=== PATIENT | female | born 1975 | race Caucasian/White ===

== ENCOUNTER 2017-09-08 14:01 | Observation (INO) ==
[~2017-09-08 14:01] MED LIST: *HR* HYDROcodone/Acet 5/325 mg TABLET PO PRN; Acetaminophen 325 MG TABLET PO PRN
[2017-09-08 17:24] LABS: Bilirubin,Urine Negative (Negative); Blood,Urine Negative (Negative); Clarity,Urine Clear (Clear); Color,Urine Yellow (Yellow); Glucose,Urine (UA) Normal (Normal); Ketones,Urine Negative (Negative); Leukocyte Esterase,Urine Negative (Negative); Nitrite,Urine Negative (Negative); Protein,Urine Trace mg/dL (Neg-Trace); Specific Gravity,Urine 1.027 (1.010-1.025); Urobilinogen,Urine Normal (Normal)
[2017-09-08 17:28] LABS: Bacteria,Urine Few per hpf (None-Few); Hyaline Casts,Urine None Seen per lpf (None-Few); RBC,Urine 0-3 per hpf (0-3); Squamous Epithelial Cell,Urine Many per lpf (None-Few)
--- NOTE | 2017-09-08 17:52 | Emergency Department Note ---
Disposition Clinical Impression: Viral meningitis Disposition: Admitted As Inpatient Condition: Fair Referrals: Richy Peterson MD [Primary Care Provider] - Forms: ED Satisfaction Letter Time of Disposition: 22:53 General Adult HPI - General Chief complaint: ED Weakness Stated complaint: weakness, body aches, fever Time Seen by Provider: 09/08/17 16:58 Source: patient Limitations: no limitations Nursing Notes Reviewed: Yes Vital Signs Reviewed: Yes - History of Present Illness HPI Narrative: 42-year-old female presents from home for evaluation of headache and fever. This began 3 days ago he reaches measured her temperature at home to be 101.8 by mouth with associated sweats and chills. She describes her headache as bitemporal with photophobia, phonophobia, and increased sensitivity to smell. She does have a history of migraine however, this is different in that her symptoms are associated with generalized myalgia and weakness which is atypical for her normal migraines. ROS: Positive: As above Negative: Confusion, changes in vision, chest pain, palpitations, change in her chronic asthmatic cough, abdominal pain, focal numbness or weakness. Pain Scale: 10 - Related Data Home Medications Medication Instructions Recorded Confirmed Albuterol Neb [Proventil Neb] 2.5 mg IH TID PRN 08/05/16 09/08/17 Albuterol Sulfate [Ventolin Hfa] 2 puff IH BID PRN 08/05/16 09/08/17 Citalopram Hydrobromide 10 mg PO DAILY 08/05/16 09/08/17 [Citalopram HBr] LORazepam [Ativan] 0.5 mg PO BID 08/05/16 09/08/17 Montelukast [Singulair] 10 mg PO DAILY 08/05/16 09/08/17 SUMAtriptan succinate [Imitrex] 50 mg PO Q2H PRN 08/05/16 09/08/17 raNITIdine HCl [Ranitidine HCl] 150 mg PO BID 08/05/16 09/08/17 Flunisolide [Aerospan] 2 puff IH BID PRN 09/05/16 09/08/17 Dicyclomine [Bentyl] 20 mg PO QID 09/08/17 09/08/17 Doxepin HCl 150 mg PO DAILY 09/08/17 09/08/17 Lansoprazole [Prevacid] 30 mg PO DAILY 09/08/17 09/08/17 Lidocaine Patch [Lidoderm 5% patch] 1 patch TP DAILY 09/08/17 09/08/17 Mometasone Furoate [Asmanex Hfa] 2 puff IH TID 09/08/17 09/08/17 Previous Rx's Medication Instructions Recorded Docusate Sodium [Dok] 100 mg PO DAILY PRN #0 09/15/16 Fluticasone Propionate [Flonase 15.8 ml NS DAILY #1 spray.susp 07/06/17 Allergy Relief] Loratadine/Pseudophed (12 HR) 1 each PO BID #14 tab.er.12h 07/06/17 [Claritin D (12HR)] Allergies Allergy/AdvReac Type Severity Reaction Status Date / Time Amoxicillin [From Amoxil] Allergy Hives Verified 09/08/17 20:43 dextromethorphan Allergy Palpitation Verified 09/08/17 20:43 [From Capmist DM] s guaifenesin [From Capmist DM] Allergy Palpitation Verified 09/08/17 20:43 s pseudoephedrine Allergy Palpitation Verified 09/08/17 20:43 [From Capmist DM] s All systems ED: reviewed and negative except as stated. Review of Systems: As Per HPI Past Medical History - Past Medical History Medical history: Reports: arthritis, asthma, diabetes, GERD, migraine Surgical history: Reports: cholecystectomy, hysterectomy Psychiatric history: Reports: bipolar - Social History Smoking Status: Never smoker Smokeless Tobacco Status: No Alcohol use: Reports: none Drug use: Reports: none Physical Exam Vital Signs Reviewed General: Patient is alert, oriented, and in no acute distress. She is laying comfortably in a darkened room. Head: atraumatic, normocephalic Eye: normal appearance, PERRL, EOMI, no scleral icterus, no conjunctival injection ENT: mucous membranes moist, normal external ear exam Neck: normal inspection, trachea midline, full ROM Chest: normal inspection, symmetric chest rise Respiratory: Good respiratory effort. Bilateral breath sounds are clear without wheezing, crackles, or rhonchi. Cardiovascular: Regular rate and rhythm. No clicks, rubs, gallops, or murmors. Normal heart sounds. Abdomen: Bowel sounds present normoactive x-4 quadrants. Abdomen is soft, nondistended, and nontender. No guarding or rebound. No organomegaly noted. Musculoskeletal: Spontaneously moving all extremities. Skin: warm, dry, intact. Neuro: Alert and oriented x4. Sensation light touch intact. Positive Kernig, positive Brudzinski. Psych: Patient's affect is appropriate for situation. - General Limitations: no limitations General appearance: alert, in no apparent distress Course Course Narrative: Clinical concern is for meningitis. Will perform ocular ultrasound to measure optic nerve diameter to assess for papilledema. If absent, will lumbar puncture. No papilledema on US bedside in bilateral eyes. Images saved to PACS. LP performed. CSF cell count shows 236 count nuetrophils with low RBC count. Diff pending. Began IVF and analgesia. 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 He recommends admission to hospitalist. No need for antiviral as patient does not have altered mentation. I discussed the above with the patient. She is agreeable to admission for continued evaluation and management. I discussed the above with the admitting hospitalist who agrees to accept the patient for continued evaluation and management. Vital Signs Temperature 98.5 F 09/08/17 14:05 Pulse Rate 110 09/08/17 14:05 Respiratory Rate 20 09/08/17 14:05 Blood Pressure 123/82 09/08/17 14:05 O2 Sat by Pulse Oximetry 96 09/08/17 14:05 Temperature 98.5 F 09/08/17 17:04 Pulse Rate 78 09/08/17 21:30 Respiratory Rate 13 09/08/17 21:30 Blood Pressure 103/81 09/08/17 21:30 O2 Sat by Pulse Oximetry 96 09/08/17 21:30 Oxygen Delivery Oxygen Delivery Room Air Medical Decision Making - Lab Data Result diagrams: 09/08/17 17:34 Lab Results 09/08/17 09/08/17 09/08/17 Range/Units 17:14 17:14 17:34 ESR (0-15) mm/hr Sodium 138 (136-145) mEq/L Potassium 4.1 (3.5-5.1) mEq/L Chloride 101 (98-107) mEq/L Carbon Dioxide 29 (23-29) mEq/L BUN 20 (6-20) mg/dL Creatinine 1.39 H (0.60-1.20) mg/dL Est GFR ( Amer) 50 L (> 60) Est GFR (Non-Af Amer) 41 L (> 60) BUN/Creatinine Ratio 14 (6-26) Glucose 104 (70-105) mg/dL Calculated Osmolality 289 (280-300) Calcium 9.6 (8.6-10.3) mg/dL C-Reactive Protein < 5 (Less than 10) mg/L Urine Color Yellow (Yellow) Urine Clarity Clear (Clear) Urine pH 6.0 (5.0-8.0) pH Units Ur Specific [place] 1.027 H (1.010-1.025) Urine Protein Trace (Neg-Trace) mg/dL Urine Glucose (UA) Normal (Normal) mg/dL Urine Ketones Negative (Negative) mg/dL Urine Blood Negative (Negative) Urine Nitrite Negative (Negative) Urine Bilirubin Negative (Negative) Urine Urobilinogen Normal (Normal) mg/dL Ur Leukocyte Esterase Negative (Negative) Urine Microscopic RBC 0-3 (0-3) per hpf Ur Squamous Epith Cells Many H (None-Few) per lpf Urine Bacteria Few (None-Few) per hpf Hyaline Casts None Seen (None-Few) per lpf Urine Test Negative (Negative) CSF Volume mL CSF Appearance (Clear) CSF Color (Colorless) CSF RBC (0.000 - 0.002) M/mcL CSF Tot Nucleated Cells (0-5) TNC/mcL CSF Seg Neutrophils CSF Band Neutrophils % CSF Lymphocytes % % CSF Monocytes % CSF Eosinophils % CSF Basophils % CSF Other Cells % CSF Xanth Comm (Not Observe) 18 09/08/17 Range/Units 17:44 19:00 ESR 40 H (0-15) mm/hr Sodium (136-145) mEq/L Potassium (3.5-5.1) mEq/L Chloride (98-107) mEq/L Carbon Dioxide (23-29) mEq/L BUN (6-20) mg/dL Creatinine (0.60-1.20) mg/dL Est GFR ( Amer) (> 60) Est GFR (Non-Af Amer) (> 60) BUN/Creatinine Ratio (6-26) Glucose (70-105) mg/dL Calculated Osmolality (280-300) Calcium (8.6-10.3) mg/dL C-Reactive Protein (Less than 10) mg/L Urine Color (Yellow) Urine Clarity (Clear) Urine pH (5.0-8.0) pH Units Ur Specific [place] (1.010-1.025) Urine Protein (Neg-Trace) mg/dL Urine Glucose (UA) (Normal) mg/dL Urine Ketones (Negative) mg/dL Urine Blood (Negative) Urine Nitrite (Negative) Urine Bilirubin (Negative) Urine Urobilinogen (Normal) mg/dL Ur Leukocyte Esterase (Negative) Urine Microscopic RBC (0-3) per hpf Ur Squamous Epith Cells (None-Few) per lpf Urine Bacteria (None-Few) per hpf Hyaline Casts (None-Few) per lpf Urine Test (Negative) CSF Volume 2.5 mL CSF Appearance Clear (Clear) CSF Color Colorless (Colorless) CSF RBC < 0.002 (0.000 - 0.002) M/mcL CSF Tot Nucleated Cells 236 H* (0-5) TNC/mcL CSF Seg Neutrophils Test Not Performed CSF Band Neutrophils % Test Not Performed CSF Lymphocytes % 100 % CSF Monocytes % Test Not Performed CSF Eosinophils % Test Not Performed CSF Basophils % Test Not Performed CSF Other Cells % Test Not Performed CSF Xanth Comm Not Observed (Not Observe)
[2017-09-08 18:35] LABS: BUN/Creatinine Ratio 14 (6-26); Blood Urea Nitrogen 20 mg/dL (6-20); Calcium 9.6 mg/dL (8.6-10.3); Carbon Dioxide 29 mEq/L (23-29); Chloride 101 mEq/L (98-107); Glucose 104 mg/dL (70-105); Osmolality,Calculated 289 (280-300); Potassium 4.1 mEq/L (3.5-5.1); Sodium 138 mEq/L (136-145); eGFR For African Americans 50 (> 60); eGFR For Non-African Americans 41 (> 60)
[2017-09-08] MEDS ORDERED: Lidocaine -MPF 1% 2 ML VIAL INFILT STA (19:02)
[2017-09-08 19:08] LABS: C-Reactive Protein < 5 mg/L (Less than 10)
--- NOTE | 2017-09-08 20:01 | Emergency Department Note ---
Disposition Clinical Impression: Viral meningitis Disposition: Admitted As Inpatient Condition: Fair General Adult HPI - General Chief complaint: ED Weakness Stated complaint: weakness, body aches, fever Time Seen by Provider: 09/08/17 16:58 Source: patient Limitations: no limitations - History of Present Illness Pain Scale: 10 - Related Data Home Medications Medication Instructions Recorded Confirmed Albuterol Neb [Proventil Neb] 2.5 mg IH TID PRN 08/05/16 09/08/17 Albuterol Sulfate [Ventolin Hfa] 2 puff IH BID PRN 08/05/16 09/08/17 Citalopram Hydrobromide 10 mg PO DAILY 08/05/16 09/08/17 [Citalopram HBr] LORazepam [Ativan] 0.5 mg PO BID 08/05/16 09/08/17 Montelukast [Singulair] 10 mg PO DAILY 08/05/16 09/08/17 SUMAtriptan succinate [Imitrex] 50 mg PO Q2H PRN 08/05/16 09/08/17 raNITIdine HCl [Ranitidine HCl] 150 mg PO BID 08/05/16 09/08/17 Flunisolide [Aerospan] 2 puff IH BID PRN 09/05/16 09/08/17 Dicyclomine [Bentyl] 20 mg PO QID 09/08/17 09/08/17 Doxepin HCl 150 mg PO DAILY 09/08/17 09/08/17 Lansoprazole [Prevacid] 30 mg PO DAILY 09/08/17 09/08/17 Lidocaine Patch [Lidoderm 5% patch] 1 patch TP DAILY 09/08/17 09/08/17 Mometasone Furoate [Asmanex Hfa] 2 puff IH TID 09/08/17 09/08/17 Previous Rx's Medication Instructions Recorded Docusate Sodium [Dok] 100 mg PO DAILY PRN #0 09/15/16 Fluticasone Propionate [Flonase 15.8 ml NS DAILY #1 spray.susp 07/06/17 Allergy Relief] Loratadine/Pseudophed (12 HR) 1 each PO BID #14 tab.er.12h 07/06/17 [Claritin D (12HR)] Allergies Allergy/AdvReac Type Severity Reaction Status Date / Time Amoxicillin [From Amoxil] Allergy Hives Verified 09/08/17 20:43 dextromethorphan Allergy Palpitation Verified 09/08/17 20:43 [From Capmist DM] s guaifenesin [From Capmist DM] Allergy Palpitation Verified 09/08/17 20:43 s pseudoephedrine Allergy Palpitation Verified 09/08/17 20:43 [From Capmist DM] s Past Medical History - Past Medical History Medical history: Reports: arthritis, asthma, diabetes, GERD, migraine Surgical history: Reports: cholecystectomy, hysterectomy Psychiatric history: Reports: bipolar - Social History Smoking Status: Never smoker Smokeless Tobacco Status: No Alcohol use: Reports: none Drug use: Reports: none Physical Exam - General Limitations: no limitations General appearance: alert, in no apparent distress Course Vital Signs Temperature 98.5 F 09/08/17 14:05 Pulse Rate 110 09/08/17 14:05 Respiratory Rate 20 09/08/17 14:05 Blood Pressure 123/82 09/08/17 14:05 O2 Sat by Pulse Oximetry 96 09/08/17 14:05 Temperature 98.5 F 09/08/17 17:04 Pulse Rate 78 09/08/17 21:30 Respiratory Rate 16 09/08/17 23:18 Blood Pressure 128/80 09/08/17 23:18 O2 Sat by Pulse Oximetry 96 09/08/17 21:30 Oxygen Delivery Oxygen Delivery Room Air Medical Decision Making - Lab Data Result diagrams: 09/08/17 17:34 Lab Results 09/08/17 09/08/17 09/08/17 Range/Units 17:14 17:14 17:34 ESR (0-15) mm/hr Sodium 138 (136-145) mEq/L Potassium 4.1 (3.5-5.1) mEq/L Chloride 101 (98-107) mEq/L Carbon Dioxide 29 (23-29) mEq/L BUN 20 (6-20) mg/dL Creatinine 1.39 H (0.60-1.20) mg/dL Est GFR ( Amer) 50 L (> 60) Est GFR (Non-Af Amer) 41 L (> 60) BUN/Creatinine Ratio 14 (6-26) Glucose 104 (70-105) mg/dL Calculated Osmolality 289 (280-300) Calcium 9.6 (8.6-10.3) mg/dL C-Reactive Protein < 5 (Less than 10) mg/L Urine Color Yellow (Yellow) Urine Clarity Clear (Clear) Urine pH 6.0 (5.0-8.0) pH Units Ur Specific [place] 1.027 H (1.010-1.025) Urine Protein Trace (Neg-Trace) mg/dL Urine Glucose (UA) Normal (Normal) mg/dL Urine Ketones Negative (Negative) mg/dL Urine Blood Negative (Negative) Urine Nitrite Negative (Negative) Urine Bilirubin Negative (Negative) Urine Urobilinogen Normal (Normal) mg/dL Ur Leukocyte Esterase Negative (Negative) Urine Microscopic RBC 0-3 (0-3) per hpf Ur Squamous Epith Cells Many H (None-Few) per lpf Urine Bacteria Few (None-Few) per hpf Hyaline Casts None Seen (None-Few) per lpf Urine Test Negative (Negative) CSF Volume mL CSF Appearance (Clear) CSF Color (Colorless) CSF RBC (0.000 - 0.002) M/mcL CSF Tot Nucleated Cells (0-5) TNC/mcL CSF Seg Neutrophils CSF Band Neutrophils % CSF Lymphocytes % % CSF Monocytes % CSF Eosinophils % CSF Basophils % CSF Other Cells % CSF Xanth Comm (Not Observe) 09/08/17 09/08/17 Range/Units 17:44 19:00 ESR 40 H (0-15) mm/hr Sodium (136-145) mEq/L Potassium (3.5-5.1) mEq/L Chloride (98-107) mEq/L Carbon Dioxide (23-29) mEq/L BUN (6-20) mg/dL Creatinine (0.60-1.20) mg/dL Est GFR ( Amer) (> 60) Est GFR (Non-Af Amer) (> 60) BUN/Creatinine Ratio (6-26) Glucose (70-105) mg/dL Calculated Osmolality (280-300) Calcium (8.6-10.3) mg/dL C-Reactive Protein (Less than 10) mg/L Urine Color (Yellow) Urine Clarity (Clear) Urine pH (5.0-8.0) pH Units Ur Specific [place] (1.010-1.025) Urine Protein (Neg-Trace) mg/dL Urine Glucose (UA) (Normal) mg/dL Urine Ketones (Negative) mg/dL Urine Blood (Negative) Urine Nitrite (Negative) Urine Bilirubin (Negative) Urine Urobilinogen (Normal) mg/dL Ur Leukocyte Esterase (Negative) Urine Microscopic RBC (0-3) per hpf Ur Squamous Epith Cells (None-Few) per lpf Urine Bacteria (None-Few) per hpf Hyaline Casts (None-Few) per lpf Urine Test (Negative) CSF Volume 2.5 mL CSF Appearance Clear (Clear) CSF Color Colorless (Colorless) CSF RBC < 0.002 (0.000 - 0.002) M/mcL CSF Tot Nucleated Cells 236 H* (0-5) TNC/mcL CSF Seg Neutrophils Test Not Performed CSF Band Neutrophils % Test Not Performed CSF Lymphocytes % 100 % CSF Monocytes % Test Not Performed CSF Eosinophils % Test Not Performed CSF Basophils % Test Not Performed CSF Other Cells % Test Not Performed CSF Xanth Comm Not Observed (Not Observe) Attestation Statement - Attestation Attestation: I examined this patient and my medical decision-making was reviewed with the Resident Physician. I agree with the documented findings, disposition and treatment plan as described except to the extent set forth below. Agree with Dr. Olivera's assessment that this patient requires rule out of meningitis. I was present and available for the ocular ultrasound which showed normal optic nerve sheath diameter, effectively ruling out increased ICP. I was present and assisting for the LP, and was able to obtain initially bloody spinal fluid that cleared as we collected fluid for all 4 tubes, after [address] Olivera, using a 22 ga 7" spinal needle. Please see his procedure notes for full details of these procedures. She also had some temporal tenderness that concerned Dr. Olivera for the possibility of temporal arteritis. ESR 40, elevated but not to the extent that is typical with TA. Will consult with ophthalmology.
[2017-09-08 20:11] LABS: Red Blood Cell,CSF < 0.002 M/mcL
[2017-09-08] MEDS ORDERED: *HR* FentaNYL (PF) 100 MCG/2 ML VIAL IVP ONE (20:12)
[2017-09-08 20:20] LABS: Appearance,CSF Clear (Clear)
[2017-09-08] MEDS ORDERED: 0.9 % Sodium Chloride 1,000 ML IVC ONE (20:27)
[2017-09-08] MEDS ORDERED: Ketorolac 15 MG/ML VIAL IVP ONE (20:32)
[2017-09-08 20:53] LABS: Lymphocytes,CSF 100 %
[2017-09-08] MEDS ORDERED: Naloxone 0.4 MG/ML INJ IVP PRN (21:49)
[2017-09-08] MEDS ORDERED: Albuterol 2.5 MG/3 ML NEBULIZER IH PRN (21:57)
[2017-09-08] MEDS ORDERED: FLUNISOLIDE IH PRN (21:57)
[2017-09-08] MEDS ORDERED: 0.9 % Sodium Chloride 1,000 ML IVC SCH (22:00)
--- NOTE | 2017-09-08 22:08 | Internal Med History&Physical ---
Date of Encounter: 09/08/17 Time of Encounter: 21:59 Internal Medicine - H&P: HPI Chief complaint: headache, neck pain, fever Admitted From: Emergency Dept Plans for Post Hospital Care: Home History of present illness: Ms. Guillory is a 42 year old female who presents with a three-day history of headache, neck pain, fever, chills, and body aches. She has a history of migraine headaches and felt initially that her symptoms were due to migraine headache. However, after she failed her routine migraine medications including Imitrex, she came to the ER for evaluation. She tried going to her PCP today, but she was advised to come to the ER due to her symptoms. In the ER, there was clinical suspicion of meningitis. She therefore underwent lumbar puncture, which revealed meningitis based upon CSF studies -- most likely a viral process. ER staff contacted Dr. Llanos from neurology who agreed this was likely viral meningitis. She was subsequently admitted to hospitalist service. Upon my assessment patient in the ER, patient confirmed above history. She denies any recent tick bites, bug bites, or any frequent mosquito bites. She has had no known ill contacts. She denies any foreign travel recently. 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 Last breakout was several years ago. I reviewed her CSF studies, and I agree this is most likely viral process. However, until we have a confirmatory negative culture, I'm inclined to start antibiotics. Additionally, I will add acyclovir given her history of oral herpes. Past Med Surg Social Fam HX - Past Medical History Attestation: Yes The following information was validated with the patient. Source: patient, old records reviewed Medical history: arthritis, asthma, diabetes, GERD, migraine Additional medical history: pancreatitis Psychiatric history: bipolar - Past Surgical History Surgical History: cholecystectomy, hysterectomy Additional surgical history: nasal sx. ERCP - Social History Smoking Status: Never smoker Smokeless Tobacco Status: No Alcohol use: none Drug use: none Current living situation: Home, With Family Activity Level: Independent ambulation Recent Out of Country Travel Within the Last 8 Weeks: No - Family History Mother Hx Family Neurologic Disorders: No Father Hx Family Neurologic Disorders: No Internal Medicine - H&P: Meds Albuterol Neb [Proventil Neb] 2.5 mg IH TID PRN 08/05/16 [History] Albuterol Sulfate [Ventolin Hfa] 2 puff IH BID PRN 08/05/16 [History] Citalopram Hydrobromide [Citalopram HBr] 10 mg PO DAILY 08/05/16 [History] LORazepam [Ativan] 0.5 mg PO BID 08/05/16 [History] Montelukast [Singulair] 10 mg PO DAILY 08/05/16 [History] SUMAtriptan succinate [Imitrex] 50 mg PO Q2H PRN 08/05/16 [History] raNITIdine HCl [Ranitidine HCl] 150 mg PO BID 08/05/16 [History] Flunisolide [Aerospan] 2 puff IH BID PRN 09/05/16 [History] Docusate Sodium [Dok] 100 mg PO DAILY PRN #0 09/15/16 [Rx] Fluticasone Propionate [Flonase Allergy Relief] 15.8 ml NS DAILY #1 spray.susp 07/06/17 [Rx] Loratadine/Pseudophed (12 HR) [Claritin D (12HR)] 1 each PO BID #14 tab.er.12h 07/06/17 [Rx] Dicyclomine [Bentyl] 20 mg PO QID 09/08/17 [History] Doxepin HCl 150 mg PO DAILY 09/08/17 [History] Lansoprazole [Prevacid] 30 mg PO DAILY 09/08/17 [History] Lidocaine Patch [Lidoderm 5% patch] 1 patch TP DAILY 09/08/17 [History] Mometasone Furoate [Asmanex Hfa] 2 puff IH TID 09/08/17 [History] 3 Allergy/AdvReac Type Severity Reaction Status Date / Time Amoxicillin [From Amoxil] Allergy Hives Verified 09/08/17 20:43 dextromethorphan Allergy Palpitation Verified 09/08/17 20:43 [From Capmist DM] s guaifenesin [From Capmist DM] Allergy Palpitation Verified 09/08/17 20:43 s pseudoephedrine Allergy Palpitation Verified 09/08/17 20:43 [From Capmist DM] s - Constitutional Constitutional: chills, fever(s), no night sweats - EENT Eyes: no blurry vision, no change in vision Ears: no ear pain, no tinnitus Nose, mouth and throat: nasal congestion, sinus pressure, no sore throat - Cardiovascular Cardiovascular ROS IM: no chest pain, no dyspnea, no dyspnea on exertion - Respiratory Respiratory: no cough, no dyspnea, no hemoptysis, no chest congestion, no excessive phlegm production, no change in phlegm color - Gastrointestinal Gastrointestinal: no abdominal pain, no diarrhea, no hematemesis, no hematochezia, no melena, no nausea, no vomiting - Genitourinary Genitourinary: no dysuria, no flank pain, no hematuria - Musculoskeletal Musculoskeletal ROS IM: myalgias, neck pain, no back pain - Integumentary Integumentary IM: no rash, no jaundice - Neurological Neurological ROS: headache(s), no dizziness, no focal weakness, no frequent falls - Psychiatric Psychiatric: no anxiety, no depression - Endocrine Endocrine IM: no polydipsia, no polyuria - Allergic/Immunologic Allergic/Immunologic: no GI upset with certain foods - Constitutional Vitals: Temp Pulse Resp BP Pulse Ox 98.5 F 78 13 103/81 96 09/08/17 17:04 09/08/17 21:30 09/08/17 21:30 09/08/17 21:30 09/08/17 21:30 General appearance: Present: cooperative, A&O X 3, pleasant, no acute distress, answers questions appropriately - Head Head exam: Present: normal inspection - Eye Eye exam: Present: EOMI, normal appearance, PERRL. Absent: scleral icterus Pupils: Present: normal accommodation - ENT ENT exam: Present: mucous membranes moist, normal exam, normal oropharynx Additional comments: no oral, lip or mucosal ulcers - Neck Neck exam general surgery: Present: full ROM, tenderness (posterior neck/ cervical spine), nuchal rigidity (mild), trachea midline. Absent: thyromegaly - Respiratory Respiratory exam: Present: CTAB. Absent: chest wall tenderness, rales, rhonchi , wheezes - Cardiovascular Cardiovascular exam: Present: RRR, +S1, +S2. Absent: diastolic murmur, systolic murmur - GI/Abdominal GI/Abdominal exam: Present: normal bowel sounds, soft. Absent: hepatomegaly, mass, splenomegaly, tenderness - Extremities Exam Extremities exam: Present: normal capillary refill, warm, radial pulses palpable and symmetrical. Absent: calf tenderness, joint swelling, pedal edema , tenderness - Back Exam Back exam: Present: normal inspection. Absent: CVA tenderness (L), CVA tenderness (R) - Neurological Exam Neurological exam: Present: alert, CN II-XII intact, oriented X3, no focal deficits - Psychiatric Psychiatric exam: Present: normal affect, normal mood - Skin Skin exam: Present: dry, warm. Absent: rash Internal Med - H&P Results - Labs CBC & Chem 7: 09/08/17 17:34 Labs: BMP 09/08/17 17:34 Sodium 138 Potassium 4.1 Chloride 101 Carbon Dioxide 29 BUN 20 Creatinine 1.39 H Glucose 104 Calcium 9.6 Urine 09/08/17 Range/Units 17:14 Urine Color Yellow (Yellow) Urine Clarity Clear (Clear) Urine pH 6.0 (5.0-8.0) pH Units Ur Specific [place] 1.027 H (1.010-1.025) Urine Protein Trace (Neg-Trace) mg/dL Urine Glucose (UA) Normal (Normal) mg/dL - Assessment and plan (1) Meningitis Current Visit: Yes Status: Acute Assessment and plan: 1. I suspect this is viral process. 2. Until CSF cultures are confirmed negative for bacterial pathogens, will place patient on Vancomycin and Rocpehin IV. Stop/de-escalate antibiotics once CSF cultures resulted and confirmed negative. 3. Patient has history of oral cold sores/herpes. As such, will start Acyclovir IV per pharmacy dosing -- discussed dosing with pharmacy. 4. CSF collected and sent for HSV PCR. 5. Neurology already consulted through ER. (2) Asthma Current Visit: Yes Status: Chronic Assessment and plan: 1. Continue home meds as appropriate. 2. No need for systemic steroids at this time. 3. No acute flare presently. Qualifiers: Asthma severity: moderate Asthma persistence: persistent Asthma complication type: uncomplicated Qualified Code(s): J45.40 - Moderate persistent asthma, uncomplicated (3) DVT prophylaxis Current Visit: Yes Status: Acute Assessment and plan: 1. Heparin SQ.
[2017-09-08] MEDS: cefTRIAXone 2,000 MG in Water for inj. (sterile) 20 ML 20 ML IVPB SCH (23:07)
[2017-09-08] MEDS: Acyclovir 500 MG in D5% in Water 100 ML IVPB SCH (23:29)
[2017-09-09 01:07] LABS: Glucose,CSF 54 mg/dL (40-70); Total Protein,CSF 99 mg/dL (15-45)
[2017-09-09] MEDS: *HR* Heparin 5,000 UNIT/ML VIAL SQ SCH ×3 (02:35→21:45)
[2017-09-09] MEDS: SUMAtriptan succinate 50 MG TABLET PO PRN ×4 (02:35→20:01)
[2017-09-09] MEDS: cefTRIAXone 2,000 MG in Water for inj. (sterile) 20 ML 20 ML IVPB SCH ×2 (04:50→17:56)
[2017-09-09 06:02] LABS: Basophils % 0.5 %; Eosinophils # 0.2 K/mcL (0.0-0.6); Eosinophils % 1.9 %; Hematocrit 35.1 % (35.3-44.9); Hemoglobin 11.6 g/dL (11.5-15.4); Immature Granulocytes % 0.9 % (0-4); Lymphocytes # 2.1 K/mcL (0.6-4.6); Lymphocytes % 24.2 %; Mean Corpuscular Hemoglobin 28.9 pg (28.0-33.3); Mean Corpuscular Volume 87.5 fL (83.0-100.0); Mean Platelet Volume 9.1 fL (9.4-12.4); Monocytes # 0.7 K/mcL (0.0-1.3); Monocytes % 8.4 %; Neutrophils # 5.5 K/mcL (1.6-8.9); Platelet Count 221 K/mcL (140-400); Red Blood Count 4.01 M/mcL (3.82-4.97); Red Cell Distribution Width 13.4 % (11.5-14.5); Segmented Neutrophils % 64.1 %
[2017-09-09 06:19] LABS: Albumin 3.6 g/dL (3.5-5.7); Albumin/Globulin Ratio 1.3 (1.1-2.2); Bilirubin,Total 0.4 mg/dL (0.3-1.0); Calcium 8.5 mg/dL (8.6-10.3); Globulin 2.8 g/dL (2.4-3.5); Potassium 3.9 mEq/L (3.5-5.1); Total Protein 6.4 g/dL (6.4-8.9)
[2017-09-09] MEDS: Famotidine 20 MG TABLET PO SCH ×2 (08:08→20:01)
[2017-09-09] MEDS: *HR* LORazepam 0.5 MG TABLET PO SCH ×2 (08:08→20:01)
[2017-09-09] MEDS: Loratadine/Pseudophed (12 HR) 1 EACH TABLET PO SCH ×2 (08:08→20:02)
[2017-09-09] MEDS: Fluticasone Propionate Nasal 50 MCG/SPRAY BOTTLE NS SCH (08:11)
--- NOTE | 2017-09-09 08:22 | Neurology - Consult Note ---
Date of Encounter: 09/09/17 Time of Encounter: 08:18 Assessment and Plan (1) Viral meningitis Current Visit: Yes Status: Acute At this juncture I agree with the diagnosis of viral meningitis. She shows no evidence of encephalitis. Current workup is in progress. Cultures are yet pending as are PCR tests. Given her history of oral herpes I would recommend simply maintaining her on oral acyclovir for 10 day course of treatment. Also recommend hydration and pain management as necessary. Otherwise I see no other factors that I would consider complicating regarding this case. I would recommend keeping her in hospital pending final cultures. History of Present Illness HPI: The chart was reviewed, the patient was seen and examined. Ms. Guillory is a 42 year old female who is admitted secondary to what appears to be a viral meningitis. She reports a history of progressively worsening headache which began about 3 days or so ago. Request to include intense neck pain as well as back pain. Date that she did try [id number] remedies at home to try to help with the headaches to no avail. Ultimately she came to the ED where there was a clinical suspicion for meningitis. Lumbar puncture performed in the ED. WBCs were elevated at 236, 100% worse lymphocytes. Protein was elevated at 99. Glucose was normal at 54. Gram stain was negative for organisms. CSF culture is pending. At the time of admission she states that her headache was 10 on a scale of 10. Currently she rates it at about a 7. She has no confusion associated with this. She does feel some improvement compared to yesterday. Apparently she does have a history of oral herpes. Since admission she has been started on vancomycin, was also given ceftriaxone and is on acyclovir. Her appearance is nontoxic. She is not in any acute distress. Past Med Surg Social Fam HX - Past Medical History Medical history: arthritis, asthma, diabetes, GERD, migraine Additional medical history: pancreatitis Psychiatric history: bipolar - Past Surgical History Surgical History: cholecystectomy, hysterectomy Additional surgical history: nasal sx. ERCP - Social History Smoking Status: Never smoker Smokeless Tobacco Status: No Alcohol use: none Drug use: none - Family History Mother Hx Family Neurologic Disorders: No Father History Unknown: Yes Hx Family Neurologic Disorders: No Medications and Allergies Albuterol Neb [Proventil Neb] 2.5 mg IH TID PRN 08/05/16 [History] Albuterol Sulfate [Ventolin Hfa] 2 puff IH BID PRN 08/05/16 [History] Citalopram Hydrobromide [Citalopram HBr] 10 mg PO DAILY 08/05/16 [History] LORazepam [Ativan] 0.5 mg PO BID 08/05/16 [History] Montelukast [Singulair] 10 mg PO DAILY 08/05/16 [History] SUMAtriptan succinate [Imitrex] 50 mg PO Q2H PRN 08/05/16 [History] raNITIdine HCl [Ranitidine HCl] 150 mg PO BID 08/05/16 [History] Flunisolide [Aerospan] 2 puff IH BID PRN 09/05/16 [History] Docusate Sodium [Dok] 100 mg PO DAILY PRN #0 09/15/16 [Rx] Fluticasone Propionate [Flonase Allergy Relief] 15.8 ml NS DAILY #1 spray.susp 07/06/17 [Rx] Loratadine/Pseudophed (12 HR) [Claritin D (12HR)] 1 each PO BID #14 tab.er.12h 07/06/17 [Rx] Dicyclomine [Bentyl] 20 mg PO QID 09/08/17 [History] Doxepin HCl 150 mg PO DAILY 09/08/17 [History] Lansoprazole [Prevacid] 30 mg PO DAILY 09/08/17 [History] Lidocaine Patch [Lidoderm 5% patch] 1 patch TP DAILY 09/08/17 [History] Mometasone Furoate [Asmanex Hfa] 2 puff IH TID 09/08/17 [History] 3 Allergy/AdvReac Type Severity Reaction Status Date / Time Amoxicillin [From Amoxil] Allergy Hives Verified 09/08/17 20:43 dextromethorphan Allergy Palpitation Verified 09/08/17 20:43 [From Capmist DM] s guaifenesin [From Capmist DM] Allergy Palpitation Verified 09/08/17 20:43 s pseudoephedrine Allergy Palpitation Verified 09/08/17 20:43 [From Capmist DM] s All Systems: The remainder of the systems were reviewed and are negative Review of Systems: The balance of the systems review is negative. Physical Examination - Vital Signs Vital Signs: Initial Vital Signs Temp Pulse Resp BP Pulse Ox 98.5 F 110 20 123/82 96 09/08/17 14:05 09/08/17 14:05 09/08/17 14:05 09/08/17 14:05 09/08/17 14:05 - Exam Exam: Currently she has no Kernig or Brudzinski however apparently these were present yesterday in the ED. - Neurologic Detailed motor examination: full strength in all major muscle groups Motor examination - right side: 07/19: deltoids, biceps, triceps, wrist flexion, wrist extension, labor trainer, hip flexors, tibialis Anterior, quadriceps, toe extension (EHL), plantarflexion Motor examination - left side: 07/19: deltoids, biceps, triceps, wrist flexion, wrist extension, hip flexors, labor trainer, quadriceps, tibialis Anterior, toe extension (EHL), plantarflexion Mental Status Examination: awake, alert, oriented to person, oriented to place, oriented to time, follows commands appropriately, answers questions appropriately, no agnosia, no aphasia, no aproxia Cranial nerve examination: PERRL, EOMI, visual díaz intact, corneal reflexes brisk symmetrically, sensory to face intact, mastication intact, no facial asymmetry is present, no dysarthria, hearing is intact symmetrically, soft palate elevates bilaterally upon phonation, gag reflex intact, flexes SCM and trapezius muscles symmetrically with full power, tongue protrudes midline, no atrophy or facial fasiculations present Cerebellar examination: no dysmetria, performs finger to nose and heel to reynoso symmetrically without ataxia, no gait ataxia, no truncal ataxia, no difficulty with rapid alternating movements Results - Laboratory Findings CBC and BMP: 09/09/17 05:35 09/09/17 05:35 Abnormal lab findings: Abnormal lab results Hct 35.1 % (35.3-44.9) L 09/09/17 05:35 MPV 9.1 fL (9.4-12.4) L 09/09/17 05:35 ESR 40 mm/hr (0-15) H 09/08/17 17:44 Creatinine 1.38 mg/dL (0.60-1.20) H 09/09/17 05:35 Est GFR ( Amer) 50 (> 60) L 09/09/17 05:35 Est GFR (Non-Af Amer) 42 (> 60) L 09/09/17 05:35 Glucose 109 mg/dL (70-105) H 09/09/17 05:35 Calcium 8.5 mg/dL (8.6-10.3) L 09/09/17 05:35 AST 10 Units/L (13-39) L 09/09/17 05:35 Ur Specific [place] 1.027 (1.010-1.025) H 09/08/17 17:14 Ur Squamous Epith Cells Many per lpf (None-Few) H 09/08/17 17:14 CSF Tot Nucleated Cells 236 TNC/mcL (0-5) H* 09/08/17 19:00 CSF Total Protein 99 mg/dL (15-45) H 09/08/17 19:00 Consult Discharge Plan - Plan Referrals: Richy Peterson MD [Primary Care Provider] -
[2017-09-09] MEDS: Beclomethasone 80mcg MDI IH SCH ×2 (10:04→19:55)
[2017-09-09] MEDS: Acyclovir 500 MG in D5% in Water 100 ML IVPB SCH (10:20)
[2017-09-09] MEDS: Ibuprofen 400 MG TABLET PO PRN ×2 (10:35→20:01)
[2017-09-09] MEDS ORDERED: 0.9 % Sodium Chloride 1,000 ML IVC ONE (14:08)
--- NOTE | 2017-09-09 14:54 | Internal Med Progress Note ---
Date of Encounter: 09/09/17 Time of Encounter: 14:37 - Assessment and plan (1) Meningitis Current Visit: Yes Status: Acute Assessment and plan: Neurology consulted; appreciate input. Agree that this like most likely viral. Continue IV vancomycin, IV rocephin, and IV acyclovir until CSF culture finalizes. She looks to be clinically improving. (2) Acute kidney injury Current Visit: Yes Status: Acute Assessment and plan: Give 1L NS bolus, then continue IV NS at 125 ml/hr. Encourage PO hydration. Recheck BMP in AM. (3) Asthma Current Visit: Yes Status: Chronic Assessment and plan: Continue home medications. Qualifiers: Asthma severity: moderate Asthma persistence: persistent Asthma complication type: uncomplicated Qualified Code(s): J45.40 - Moderate persistent asthma, uncomplicated (4) DVT prophylaxis Current Visit: Yes Status: Acute Assessment and plan: Continue SQ heparin. - Time Spent With Patient Total time spent is greater than 50% in coordination of care (as documented) at patient's floor/unit and/or counseling patient: less than 15 minutes - Subjective Interval history: Patient had no acute events overnight. She states that she is feeling "better" today. She denies headache and any neurological deficits. She denies fever, chills, chest pain, SOB, nausea, vomiting, or abdominal pain. She has no complaints at this time. - Constitutional Vitals: Temp Pulse Resp BP Pulse Ox 99.0 F 93 20 145/85 97 09/09/17 07:33 09/09/17 12:09 09/09/17 12:07 09/09/17 07:33 09/09/17 10:06 General appearance: Present: cooperative, A&O X 3, morbidly obese, pleasant, no acute distress, answers questions appropriately - Head Head exam: Present: atraumatic, normal inspection, normocephalic - Eye Eye exam: Present: EOMI, PERRL. Absent: conjunctival injection, nystagmus, scleral icterus - Neck Neck exam general surgery: Absent: nuchal rigidity - Respiratory Respiratory exam: Present: CTAB. Absent: accessory muscle use, rales, rhonchi, wheezes Additional comments: Normal WOB - Cardiovascular Cardiovascular exam: Present: RRR, +S1, +S2. Absent: diastolic murmur, gallop, rubs, systolic murmur Additional comments: No BLE edema - GI/Abdominal GI/Abdominal exam: Present: normal bowel sounds, soft. Absent: distended, hepatomegaly, mass, splenomegaly, tenderness - Neurological Exam Neurological exam: Present: alert, CN II-XII intact, oriented X3, no focal deficits, strengths equal and symetr throughout. Absent: motor sensory deficit , facial droop, speech deficit - Psychiatric Psychiatric exam: Present: normal affect, normal mood. Absent: agitated, anxious, depressed - Skin Skin exam: Present: dry, intact, warm. Absent: cyanosis, rash Internal Medicine: Result - Labs CBC & Chem 7: 09/09/17 05:35 09/09/17 05:35 Labs: Short CBC 09/09/17 Range/Units 05:35 WBC 8.6 (4.3-11.1) K/mcL Hgb 11.6 (11.5-15.4) g/dL Hct 35.1 L (35.3-44.9) % Plt Count 221 (140-400) K/mcL Neutrophils # 5.5 (1.6-8.9) K/mcL BMP 09/09/17 05:35 Sodium 138 Potassium 3.9 Chloride 106 Carbon Dioxide 25 BUN 20 Creatinine 1.38 H Glucose 109 H Calcium 8.5 L Liver Function 09/09/17 Range/Units 05:35 Total Bilirubin 0.4 (0.3-1.0) mg/dL AST 10 L (13-39) Units/L ALT 9 (7-52) Units/L Alkaline Phosphatase 77 (34-104) Units/L Albumin 3.6 (3.5-5.7) g/dL Consult Discharge Plan - Plan Referrals: Richy Peterson MD [Primary Care Provider] - 09/22/17 3:00 pm
[2017-09-09] MEDS: 0.9 % Sodium Chloride 1,000 ML IVC SCH (16:01)
[2017-09-09] MEDS: D5 IVPB SCH (17:57)
[2017-09-09] MEDS: WATER IVPB SCH (17:57)
[2017-09-09] MEDS: ACYCLOVIR IVPB SCH (17:57)
[2017-09-09] MEDS ORDERED: Aminoglycoside Consult 1 EACH MC ONE (18:44)
[2017-09-09] MEDS ORDERED: Ondansetron 4 MG/2 ML VIAL IVP PRN (19:40)
[2017-09-10] MEDS: D5 IVPB SCH ×3 (02:31→18:08)
[2017-09-10] MEDS: ACYCLOVIR IVPB SCH ×3 (02:31→18:08)
[2017-09-10] MEDS: WATER IVPB SCH ×3 (02:31→18:08)
[2017-09-10] MEDS: 0.9 % Sodium Chloride 1,000 ML IVC SCH (02:31)
[2017-09-10 05:04] LABS: Basophils % 0.5 %; Eosinophils # 0.2 K/mcL (0.0-0.6); Eosinophils % 3.2 %; Hematocrit 35.7 % (35.3-44.9); Hemoglobin 11.6 g/dL (11.5-15.4); Immature Granulocytes % 0.9 % (0-4); Lymphocytes # 1.2 K/mcL (0.6-4.6); Lymphocytes % 21.1 %; Mean Corpuscular HGB Conc 32.5 g/dL (31.6-35.5); Mean Corpuscular Hemoglobin 28.6 pg (28.0-33.3); Mean Corpuscular Volume 88.1 fL (83.0-100.0); Mean Platelet Volume 8.9 fL (9.4-12.4); Monocytes # 0.5 K/mcL (0.0-1.3); Monocytes % 8.6 %; Neutrophils # 3.8 K/mcL (1.6-8.9); Platelet Count 190 K/mcL (140-400); Red Blood Count 4.05 M/mcL (3.82-4.97); Red Cell Distribution Width 13.2 % (11.5-14.5); Segmented Neutrophils % 65.7 %
[2017-09-10 05:25] LABS: Calcium 8.7 mg/dL (8.6-10.3); Potassium 3.8 mEq/L (3.5-5.1)
[2017-09-10] MEDS: cefTRIAXone 2,000 MG in Water for inj. (sterile) 20 ML 20 ML IVPB SCH (06:01)
[2017-09-10] MEDS: Beclomethasone 80mcg MDI IH SCH (07:36)
--- NOTE | 2017-09-10 08:03 | Neurology Progress Note ---
Date of Encounter: 09/10/17 Time of Encounter: 08:00 Assessment and Plan (1) Viral meningitis Current Visit: Yes Status: Acute It appears that we are dealing with a simple viral meningitis. CSF cultures are negative for growth at 24 hours. Patient is back to her normal status without symptoms. At this juncture I feel that it is okay to discharge her. However I believe we should maintain oral acyclovir twice a day dosing for the next 10 days or so. I will reevaluate her at your request. Subjective Interval history: The chart was reviewed, the patient was seen and examined. She had an uneventful night. Vital signs are stable, she is afebrile. She denies headache this morning. She is back to her normal neurologic function. CSF culture was negative for growth at 24 hours. The fungal cultures were negative as well. She appears well. Objective - Constitutional Vitals: Temp Pulse Resp BP Pulse Ox 98.0 F 75 18 153/85 99 09/10/17 03:12 09/10/17 03:12 09/10/17 07:40 09/10/17 03:12 09/10/17 07:40 - Neurological Exam Motor Examination: Present: full strength in all major muscle groups Motor examination - right side: 5/5: deltoids, biceps, triceps, wrist flexion, wrist extension, telescope operator, hip flexors, tibialis Anterior, quadriceps, toe extension (EHL), plantarflexion Motor examination - left side: 5/5: deltoids, biceps, triceps, wrist flexion, wrist extension, hip flexors, telescope operator, quadriceps, tibialis Anterior, toe extension (EHL), plantarflexion Sensation intact: Present: intact Posture: Present: other (No nuchal rigidity. Neck is supple.) Reflex and gait examination: normal gait Mental Status Examination: Present: awake, alert, oriented to person, oriented to place, oriented to time, follows commands appropriately, answers questions appropriately, no agnosia, no aphasia, no aproxia Cranial nerve examination: Present: PERRL, EOMI, visual díaz intact, corneal reflexes brisk symmetrically, sensory to face intact, mastication intact, no facial asymmetry is present, no dysarthria, hearing is intact symmetrically, soft palate elevates bilaterally upon phonation, gag reflex intact, flexes SCM and trapezius muscles symmetrically with full power, tongue protrudes midline, no atrophy or facial fasiculations present Cerebellar examination: Present: no dysmetria, performs finger to nose and heel to reynoso symmetrically without ataxia, no gait ataxia, no truncal ataxia, no difficulty with rapid alternating movements Results - Laboratory Findings CBC and BMP: 09/10/17 04:44 09/10/17 04:44 Abnormal lab findings: Abnormal lab results MPV 8.9 fL (9.4-12.4) L 09/10/17 04:44 ESR 40 mm/hr (0-15) H 09/08/17 17:44 Chloride 108 mEq/L (98-107) H 09/10/17 04:44 Creatinine 1.26 mg/dL (0.60-1.20) H 09/10/17 04:44 Est GFR ( Amer) 56 (> 60) L 09/10/17 04:44 Est GFR (Non-Af Amer) 46 (> 60) L 09/10/17 04:44 Glucose 107 mg/dL (70-105) H 09/10/17 04:44 POC Glucose 100 mg/dL (70-99) H 09/09/17 19:41 AST 10 Units/L (13-39) L 09/09/17 05:35 Ur Specific [place] 1.027 (1.010-1.025) H 09/08/17 17:14 Ur Squamous Epith Cells Many per lpf (None-Few) H 09/08/17 17:14 CSF Tot Nucleated Cells 236 TNC/mcL (0-5) H* 09/08/17 19:00 CSF Total Protein 99 mg/dL (15-45) H 09/08/17 19:00 Consult Discharge Plan - Plan Referrals: Richy Peterson MD [Primary Care Provider] - 09/22/17 3:00 pm
[2017-09-10] MEDS: SUMAtriptan succinate 50 MG TABLET PO PRN ×2 (08:20→15:56)
[2017-09-10] MEDS: Ibuprofen 400 MG TABLET PO PRN ×2 (08:20→15:56)
[2017-09-10] MEDS: Famotidine 20 MG TABLET PO SCH (08:20)
[2017-09-10] MEDS: Loratadine/Pseudophed (12 HR) 1 EACH TABLET PO SCH (08:21)
[2017-09-10] MEDS: Fluticasone Propionate Nasal 50 MCG/SPRAY BOTTLE NS SCH (08:21)
[2017-09-10] MEDS: *HR* LORazepam 0.5 MG TABLET PO SCH (08:21)
[2017-09-10] MEDS: *HR* Heparin 5,000 UNIT/ML VIAL SQ SCH (10:59)
[2017-09-10 16:35] VITALS: BP 133/89
--- NOTE | 2017-09-10 16:55 | Discharge Summary ---
- NOTES TO OUTPATIENT PROVIDER Notes to Outpatient Provider: Follow up with PCP in 2-3 days after discharge. Recheck BMP (CHELSIE) at that time. Follow up on final hospital CSF culture results. Date of Encounter: 09/10/17 Time of Encounter: 16:51 - Discharge Diagnosis (1) Meningitis Priority: Primary Status: Acute (2) Acute kidney injury Priority: Secondary Status: Acute (3) Asthma Priority: Secondary Status: Chronic Qualifiers: Asthma severity: moderate Asthma persistence: persistent Asthma complication type: uncomplicated Qualified Code(s): J45.40 - Moderate persistent asthma, uncomplicated (4) DVT prophylaxis Priority: Secondary Status: Acute Hospital course: Ms. Guillory is a 42 year old female admitted for severe headache, neck rigidity, fever, chills, and body aches likely secondary to viral meningitis. CSF studies and culture were ordered after LP in ED. She was started on IV acyclovir, IV rocephin, and IV vancomycin. CSF cultures were negative for 24 hours. CSF studies suggested viral etiology. Neurology was consulted. They felt this was simple uncomplicated viral meningitis, and they recommended 10 day course of acyclovir. Patient states that headache and neck pain are greatly improved today. She had some CHELSIE that greatly improved with IVF. She was encouraged to maintain adequate PO hydration. She wants to go home. She will be discharged with 7 more days of acyclovir 800 mg PO BID. She will follow up with PCP in 2-3 days after discharge. They can follow up on final hospital CSF culture results. They can also recheck BMP at that time to monitor CHELSIE. Patient has met maximum benefit of this hospitalization and will be discharged home in stable condition. Discharge discussed with: patient, nurse, other (Pharmacist) - Time Spent with Patient Total time spent providing and/or coordinating discharge services: Less than 30 minutes - Discharge Medications Prescriptions: Acyclovir [Zovirax] 800 mg PO Q12H 7 Days #14 tablet Naproxen 500 mg PO Q12H PRN #10 tablet PRN Reason: Headache SUMAtriptan succinate [Imitrex] 50 mg PO Q6H PRN #10 tablet PRN Reason: Migraine Headache Home Medications: Albuterol Neb [Proventil Neb] 2.5 mg IH TID PRN 08/05/16 [History] Albuterol Sulfate [Ventolin Hfa] 2 puff IH BID PRN 08/05/16 [History] Citalopram Hydrobromide [Citalopram HBr] 10 mg PO DAILY 08/05/16 [History] LORazepam [Ativan] 0.5 mg PO BID 08/05/16 [History] Montelukast [Singulair] 10 mg PO DAILY 08/05/16 [History] raNITIdine HCl [Ranitidine HCl] 150 mg PO BID 08/05/16 [History] Flunisolide [Aerospan] 2 puff IH BID PRN 09/05/16 [History] Docusate Sodium [Dok] 100 mg PO DAILY PRN #0 09/15/16 [Rx] Fluticasone Propionate [Flonase Allergy Relief] 15.8 ml NS DAILY #1 spray.susp 07/06/17 [Rx] Loratadine/Pseudophed (12 HR) [Claritin D (12HR)] 1 each PO BID #14 tab.er.12h 07/06/17 [Rx] Dicyclomine [Bentyl] 20 mg PO QID 09/08/17 [History] Lansoprazole [Prevacid] 30 mg PO DAILY 09/08/17 [History] Lidocaine Patch [Lidoderm 5% patch] 1 patch TP DAILY 09/08/17 [History] Mometasone Furoate [Asmanex Hfa] 2 puff IH TID 09/08/17 [History] Doxepin [Sinequan] 150 mg PO HS 09/09/17 [History] Acetaminophen [Tylenol] 650 mg PO Q6HR PRN tablet 09/10/17 [Rx] Acyclovir [Zovirax] 800 mg PO Q12H 7 Days #14 tablet 09/10/17 [Rx] Naproxen 500 mg PO Q12H PRN #10 tablet 09/10/17 [Rx] SUMAtriptan succinate [Imitrex] 50 mg PO Q6H PRN #10 tablet 09/10/17 [Rx] Allergies/Adverse Reactions: 3 Allergy/AdvReac Type Severity Reaction Status Date / Time Amoxicillin [From Amoxil] Allergy Hives Verified 09/08/17 20:43 dextromethorphan Allergy Palpitation Verified 09/08/17 20:43 [From Capmist DM] s guaifenesin [From Capmist DM] Allergy Palpitation Verified 09/08/17 20:43 s pseudoephedrine Allergy Palpitation Verified 09/08/17 20:43 [From Capmist DM] s Date of admission: 09/08/17 22:39 Primary care physician: Richy Peterson MD Consults: Neurology Discharging clinician: Dylan Rush Anticipated date of discharge: 09/10/17 - Constitutional Vitals: Temp Pulse Resp BP Pulse Ox 99.2 F 77 18 133/89 98 09/10/17 08:17 09/10/17 16:28 09/10/17 16:28 09/10/17 16:28 09/10/17 16:28 General appearance: Present: cooperative, A&O X 3, morbidly obese, pleasant, no acute distress, answers questions appropriately - Head Head exam: Present: atraumatic, normal inspection, normocephalic - Neck Neck exam general surgery: Present: supple, trachea midline. Absent: lymphadenopathy, tenderness, nuchal rigidity, thyromegaly - Respiratory Respiratory exam: Present: CTAB. Absent: accessory muscle use, rales, rhonchi, wheezes Additional comments: Normal WOB - Cardiovascular Cardiovascular exam: Present: RRR, +S1, +S2. Absent: diastolic murmur, gallop, rubs, systolic murmur Additional comments: No BLE edema - GI/Abdominal GI/Abdominal exam: Present: normal bowel sounds, soft. Absent: distended, hepatomegaly, mass, splenomegaly, tenderness - Psychiatric Psychiatric exam: Present: normal affect, normal mood. Absent: agitated, anxious, depressed - Skin Skin exam: Present: dry, intact, warm. Absent: cyanosis, rash - Patient Status Disposition: Home, Self-Care Condition: Good Functional capacity at discharge: independent ambulation Overall status at discharge: patient is progressing back to baseline - Discharge Instructions Follow Up With: Richy Peterson MD [Primary Care Provider] - 09/22/17 3:00 pm Additional Instructions: Follow up with PCP in 2-3 days after discharge. Recheck BMP (CHELSIE) at that time. Follow up on final hospital CSF culture results. - Diet and Activity Activity: resume usual activities as tolerated Diet: diabetic diet, other (Renal Diet)
[2017-09-11 07:58] LABS: Herpes Simplex IgG (I&II COMB) >22.40 IV
== END 2017-09-10 18:45 | disposition home or self-care (01) ==
LOC: EMEROO 14:01 → 2NNU 14:01
PROVIDERS: ADMIT Pediatrics; ATTEND Internal Medicine